=== PATIENT | female | born 1960 | race Caucasian/White ===

== ENCOUNTER → 2016-07-12 | Outpatient (CLI) | payer OTHER ==
[~2016-07-12] MED LIST: ALEVE220 M1 PO; AMOXIL (BID DO875 MG PO; ASPIRIN LO-DOSE81 MG PO; CPAP INH; DOXYCYCLINE100 MG PO; FLONASE 50 MCG/16 GM NOSE; GLUCOPHAGE XR500 M1 PO; HYZAAR 100-251 EACH PO; LEVOTHROID (SY50 MCG PO; OCUVITE EYE +1 EACH PO; OMEGA 3-6-9 11200 MG PO; RESTORIL30 MG PO; SINGULAIR10 MG PO; STOOL SOFTENER100 MG PO; TRIAMCINOLONE454 GM TOP; WAL-ITIN10 MG PO; ZOCOR40 MG PO
== END | disposition disaster alternative care site (69) ==
LOC: GRAD 12:32
DX: H90.6 Mixed conductive and sensorineural hearing loss, bilateral (principal); K11.8 Other diseases of salivary glands

== ENCOUNTER → 2016-09-04 | Outpatient (CLI) | payer OTHER | END | disposition disaster alternative care site (69) | LOC: GRAD 10:30 | DX: Z12.31 Encounter for screening mammogram for malignant neoplasm of breast (principal); D25.9 Leiomyoma of uterus, unspecified | CPT/HCPCS: G0202 ==